=== PATIENT | female | born 1985 | race Caucasian/White ===

== ENCOUNTER 2017-01-11 20:50 | Emergency (ER) | payer SELFPAY ==
[~2017-01-11] VITALS: Ht 170.2 cm; Wt 86.1 kg
[2017-01-11 20:53] VITALS: Ht 170.2 cm; Wt 86.1 kg
[2017-01-11 23:50] LABS: BASOPHIL # 0.1 10^3/ul (0.0-0.1); BASOPHILS % 0.5 % (0.0-2.0); EOSINOPHILS # 0.3 10^3/ul (0.0-0.5); EOSINOPHILS % 2.4 % (0.0-7.0); HEMATOCRIT 40.9 % (37.0-47.0); HEMOGLOBIN 14.4 g/dl (12.0-16.0); LYMPHOCYTES # 3.2 10^3/ul (0.8-2.9); LYMPHOCYTES % 26.5 % (15.0-51.0); MEAN CORPUSCULAR HEMOGLOBIN 31.2 pg (29.0-33.0); MEAN CORPUSCULAR HGB CONC 35.2 g/dl (32.0-37.0); MEAN CORPUSCULAR VOLUME 88.7 fl (82.0-101.0); MEAN PLATELET VOLUME 8.8 fl (7.4-10.4); MONOCYTE # 0.8 10^3/ul (0.3-0.9); MONOCYTES % 7.1 % (0.0-11.0); NEUTROPHIL # 7.5 10^3/ul (1.6-7.5); NEUTROPHILS % 63.2 % (39.0-77.0); PLATELET COUNT 343 10^3/UL (140-415); RED BLOOD COUNT 4.61 10^6/ul (4.20-5.40); RED CELL DISTRIBUTION WIDTH 13.2 % (11.5-14.5); WHITE BLOOD COUNT 11.9 10^3/ul (4.8-10.8)
[2017-01-12 00:08] LABS: ADD UMIC YES; UR ASCORBIC ACID NEGATIVE (NEGATIVE); UR BACTERIA FEW /HPF (NONE SEEN); UR BILIRUBIN (Dip) NEGATIVE (NEGATIVE); UR BLOOD (Dip) 1+ mg/dL (NEGATIVE); UR CLARITY SLIGHTLY CLOUDY (CLEAR); UR COLOR YELLOW (YELLOW); UR GLUCOSE (Dip) 2+ mg/dL (NEGATIVE); UR KETONES (Dip) TRACE mg/dL (NEGATIVE); UR LEUKOCYTE ESTERASE (Dip) NEGATIVE Leu/ul (NEGATIVE); UR MUCUS FEW /HPF (NONE SEEN); UR NITRITE (Dip) NEGATIVE (NEGATIVE); UR RBC 0 /HPF (0-5); UR SPECIFIC GRAVITY (Dip) 1.026 (1.003-1.030); UR SQUAMOUS EPITHELIAL CELL FEW /HPF (FEW); UR TOTAL PROTEIN (Dip) NEGATIVE (NEGATIVE); UR UROBILINOGEN (Dip) NEGATIVE (NEGATIVE)
--- NOTE | 2017-01-12 00:13 | RADRPT ---
PROCEDURE: ULTRASOUND OBSTETRICAL CLINICAL INDICATION: 31-year-old female with pelvic pain. TECHNIQUE: Multiple sonographic images of the pelvis were obtained. The images were reviewed on a PACS workstation. COMPARISON: None. FINDINGS: There is a single intrauterine gestation. The mean sac diameter is 0.75 cm. There is a pole p resent with a crown-rump length of 0.21 cm. This yields an estimated gestational age of 5 weeks and 4 days. Cardiac activity was not clearly visualized. There is no evidence for free fluid. The right ovary has a normal echotexture and measures 3.1 x 1.9 x 2.4 cm. The left ovary has a normal echotex ture and measures 3.5 x 2.6 x 3.0 cm. There is normal flow to the ovaries bilaterally. No adnexal m asses are noted. IMPRESSION: Single early intrauterine gestation of approximately 5 weeks 4 days without definite cardiac activit y at this time. Clinical correlation follow-up ultrasound is suggested. .Geovani Bradley MD, MD Date Time Electronically viewed and signed by .Geovani Bradley MD, on 01/12/2017 00:12 .M/
--- NOTE | 2017-01-12 00:49 | ERD ---
ER Documentation Chief Complaint Chief Complaint PELVIC PAIN X3 DAYS. HPI This is a 31-year-old female presents to the ER with pelvic pain over the last 2 weeks. Patient states she has had crampy abdominal pain which has been constant. Patient states that on Wednesday that her pain got much worse. Her last normal menstrual period was back in October, she has not had a test. Patient states she has been nauseous however has not vomited. She also complains of bilateral breast tenderness. She denies any nipple discharge or any skin changes of her breasts. She denies any vaginal bleeding. ROS 12 point review of systems was done, all negative except per HPI. Allergies Allergies: Uncoded Allergies: SULFA (Allergy, Unknown, 01/11/17) PMhx/Soc Medical and Surgical Hx: pt denies Surgical Hx Hx Cardiac Disorders: Yes (htn) Hx Alcohol Use: No Hx Substance Use: No Hx Tobacco Use: No Physical Exam Vitals Vital Signs Date Time Temp Pulse Resp B/P Pulse Ox O2 Delivery O2 Flow Rate FiO2 01/11/17 20:53 99.0 76 20 160/83 99 Physical Exam GENERAL: The patient is well developed and appropriate for usual state of health , in no apparent distress. HEENT: Atraumatic. Conjunctivae are pink. Pupils equal, round, and reactive to light. Extraocular muscles are grossly intact. Bilateral tympanic membranes are clear with no evidence of erythema, effusion or dulling of the light reflex. The oropharynx is clear with no erythema or exudates. BREASTS: Breasts are symmetrical with no skin changes or masses felt. No nipple discharge. CHEST: Clear to auscultation bilaterally. There are no rales, wheezes or rhonchi. HEART: Regular rate and rhythm. No murmurs, clicks, rubs or gallops. ABDOMEN: Soft, nontender and nondistended. Good bowel sounds. No rebound or guarding. No gross peritonitis. No gross organomegaly or masses. No Morrison sign or McBurney point tenderness. Very tender to palpation over the pelvic region. BACK: No midline or flank tenderness. NEURO: Alert and oriented. Result Diagram: 01/11/17 2339 Results 24 hrs Laboratory Tests Test 01/11/17 23:39 01/11/17 23:41 White Blood Count 11.910^3/ul Red Blood Count 4.6110^6/ul Hemoglobin 14.4g/dl Hematocrit 40.9% Mean Corpuscular Volume 88.7fl Mean Corpuscular Hemoglobin 31.2pg Mean Corpuscular Hemoglobin Concent 35.2g/dl Red Cell Distribution Width 13.2% Platelet Count 79835^3/UL Mean Platelet Volume 8.8fl Neutrophils % 63.2% Lymphocytes % 26.5% Monocytes % 7.1% Eosinophils % 2.4% Basophils % 0.5% Nucleated Red Blood Cells % 0.0/100WBC Neutrophils # 7.510^3/ul Lymphocytes # 3.210^3/ul Monocytes # 0.810^3/ul Eosinophils # 0.310^3/ul Basophils # 0.110^3/ul Nucleated Red Blood Cells # 0.010^3/ul Beta HCG, Quantitative 3993.5mIU/ml Urine Color YELLOW Urine Clarity SLIGHTLY CLOUDY Urine pH 5.0 Urine Specific [place] 1.026 Urine Ketones TRACEmg/dL Urine Nitrite NEGATIVEmg/dL Urine Bilirubin NEGATIVEmg/dL Urine Urobilinogen NEGATIVEmg/dL Urine Leukocyte Esterase NEGATIVELeu/ul Urine Microscopic RBC 0/HPF Urine Microscopic WBC 4/HPF Urine Squamous Epithelial Cells FEW/HPF Urine Bacteria FEW/HPF Urine Mucus FEW/HPF Urine Hemoglobin 1+mg/dL Urine Glucose 2+mg/dL Urine Total Protein NEGATIVEmg/dl [place] [id number] Radiology Main Line: [phone] DIAGNOSTIC IMAGING REPORT Patient: JENNIFFER ROMANO : 1985 Age: 31 Sex: F [id number] DOS: 01/11/17 2336 Ordering MD: NO SWENSON PA-C Location: [facility] Room/Bed: PROCEDURE: ULTRASOUND OBSTETRICAL CLINICAL INDICATION: 31-year-old female with pelvic pain. TECHNIQUE: Multiple sonographic images of the pelvis were obtained. The images were reviewed on a PACS workstation. COMPARISON: None. FINDINGS: There is a single intrauterine gestation. The mean sac diameter is 0.75 cm. There is a pole present with a crown-rump length of 0.21 cm. This yields an estimated gestational age of 5 weeks and 4 days. Cardiac activity was not clearly visualized. There is no evidence for free fluid. The right ovary has a normal echotexture and measures 3.1 x 1.9 x 2.4 cm. The left ovary has a normal echotexture and measures 3.5 x 2.6 x 3.0 cm. There is normal flow to the ovaries bilaterally. No adnexal masses are noted. IMPRESSION: Single early intrauterine gestation of approximately 5 weeks 4 days without definite cardiac activity at this time. Clinical correlation follow-up ultrasound is suggested. .Geovani Bradley MD, MD Date Time Electronically viewed and signed by .Geovani Bradley MD, MD on 01/12/2017 00:12 .M/ CC: NO SWENSON Procedures/[facility] This is a 31-year-old female presents to the ER with pelvic pain breast tenderness and nausea. She did have a positive test. Full workup was done and there is no evidence of normality with her . Patient does have an intrauterine , suspicion for ectopic is low suspicion for molar is low. Patient does not have a urinary tract infection suspicion for Matthew is low. Patient is stable for outpatient follow- up she can take Tylenol for pain which is [id number]. She should follow- up with an [facility] as soon as possible. Medical decision making sure with the patient she understands and agrees with plan. Departure Diagnosis: Primary Impression: Condition: Stable Patient Instructions: , New Dx Additional Instructions: Llame al doctor MAANA y george shree VISH PARA DENTRO DE 1-2 TORO.Dgale a la secretaria que nosotros le instruimos hacer esta vish.Avise o llame si rosenthal condicin se empeora antes de la vish. Regresa aqui si peor o no mejor. NO SWENSON Jan 12, 2017 00:49
== END 2017-01-12 00:51 | disposition home or self-care (01) ==
LOC: FTE 20:50
DX: O26.891 Other specified pregnancy related conditions, first trimester (principal); R10.2 Pelvic and perineal pain; O10.911 Unspecified pre-existing hypertension complicating pregnancy, first trimester; R11.0 Nausea; Z3A.01 Less than 8 weeks gestation of pregnancy
CPT/HCPCS: 36415; 76801; 76817; 81001; 84702; 85025; 86900; 86901